=== PATIENT | male | born 1980 | race Hispanic/Latino ===

== ENCOUNTER 2019-06-21 09:39 | Emergency (ER) | payer OTHER ==
[2019-06-21 09:45] VITALS: BP 177/109
[2019-06-21] MEDS ORDERED: XYLOCAINE 1%/ EPI 1:100,000 INFILTRATI NR (10:00)
[2019-06-21] MEDS ORDERED: BOOSTRIX IM ONE (10:02)
--- NOTE | 2019-06-21 10:02 | Emergency Department Report ---
HPI - General Chief Complaint: Wound/Laceration Time Seen by Provider: 06/21/19 09:46 - HPI HPI: 39-year-old male presents to the emergency department with a right forearm laceration from a pain of glass that occurred just prior to arrival. The patient works for a [employer] company and a large pane of glass shattered and came down onto his arm. He is unsure of his last tetanus vaccination. He has a past medical history of hypertension. ED Past Medical Hx - Past Medical History Previous Medical History?: No - Social History Smoking Status: Never Smoker - Medications Home Medications: Home Medications Medication Instructions Recorded Confirmed Last Taken Type Sulfamethoxazole/Trimethoprim 1 each PO BID #10 tablet 06/21/19 Unknown Rx [Bactrim DS TAB] ED Review of Systems ROS: Stated complaint: CUT ARM Other details as noted in HPI Comment: All other systems reviewed and negative Musculoskeletal: myalgia. denies: joint swelling Skin: other (laceration). denies: rash Neurological: denies: numbness, paresthesias Physical Exam - Physical Exam Vital Signs: Vital Signs 06/21/19 09:43 Temperature 98 F Pulse Rate 104 H Respiratory 18 Rate Blood Pressure 177/109 [Left] O2 Sat by Pulse 98 Oximetry Physical Exam: GENERAL: The patient is well-developed well-nourished. HENT: Normocephalic. Atraumatic. Patient has moist mucous membranes. EYES: Extraocular motions are intact. NECK: Supple. Trachea is midline. CHEST/LUNGS: Clear to auscultation. There is no respiratory distress noted. HEART/CARDIOVASCULAR: Regular. There is no tachycardia. There is no murmur. ABDOMEN: Abdomen is soft, nontender. Patient has normal bowel sounds. There is no abdominal distention. SKIN: There is a 5 cm laceration to the dorsal right mid forearm. The laceration is irregular and appears to go down through the subcutaneous fat/tissue. No current bleeding. NEURO: The patient is awake, alert, and oriented. The patient is cooperative. The patient has no focal neurologic deficits. The patient has normal speech. MUSCULOSKELETAL: There is some tenderness to palpation to the right mid forearm with the patient has a laceration. There is no limitation range of motion. Radial pulse +2 over 4 and capillary refill less than 2 seconds to the affected right upper extremity. ED Course Vital Signs 06/21/19 09:43 Temperature 98 F Pulse Rate 104 H Respiratory 18 Rate Blood Pressure 177/109 [Left] O2 Sat by Pulse 98 Oximetry - Laceration /Wound Repair Right Arm Wound Location: upper extremity (right forearm) Wound Length (cm): 5 Wound's Depth, Shape: irregular Wound Explored: foreign body removed (4 glass fragments) Irrigated w/ Saline (ccs): 50 Anesthesia: Lidocaine w/ Epi Volume Anesthetic (ccs): 7 Wound Repaired With: sutures Suture Size/Type: 5:0, 4:0, proline Number of Sutures: 12 (one horizontal mattress, the rest simple interrupted) Layer Closure?: No Sterile Dressing Applied?: Yes ED Medical Decision Making - Radiology Data Radiology results: image reviewed interpreted by me: The first x-ray of the right forearm shows some radiopaque foreign bodies in the subcutaneous tissue concerning for retained glass The second x-ray of the right forearm shows removal of the radiopaque foreign bodies - Medical Decision Making Patient presents with a right forearm laceration after a pane of glass broke and fell onto his arm. He is neurovascularly intact and has full range of motion. His tetanus vaccination was updated. The x-ray did not show any fracture but did show some retained glass fragments. I was able to remove these after local anesthesia. The repeat x-ray appears to show removal of the glass fragments. The suture was then closed/approximated. He was once again neurovascularly intact after the procedure was completed. We discussed suture care, wound care, and he will follow-up with his Worker's Compensation physicians. He has also been given a referral for orthopedist. He will return to the ER with any worsening of symptoms, signs of infection, or with any acute distress. - Differential Diagnosis retained glass fragments, laceration, muscle tear Critical Care Time: No Critical care attestation.: If time is entered above; I have spent that time in minutes in the direct care of this critically ill patient, excluding procedure time. ED Disposition Clinical Impression: Retained glass fragment, Elevated blood pressure reading Laceration of right forearm Qualifiers: Encounter type: initial encounter Qualified Code(s): S51.811A - Laceration without foreign body of right forearm, initial encounter Disposition: - TO HOME OR SELFCARE Is pt being admited?: No Condition: Stable Instructions: Suture Care (ED), Laceration (ED) Additional Instructions: Please follow up with any of the Worker's Compensation physicians as directed by your place of work. I am also giving him a referral for a local orthopedist, Dr. Nava, to follow up regarding your right forearm pain. The sutures will need to be removed in about 7 days. However you will need to be seen sooner with any signs or symptoms of infection such as increased pain, increased swelling, surrounding redness, discharge of pus, development of fever. The sutures can be removed at a primary care, urgent care or in the emergency department. Prescriptions: Sulfamethoxazole/Trimethoprim [Bactrim DS TAB] 1 each PO BID #10 tablet Referrals: JOSE R NAVA MD [Staff Physician] - 2-3 Days Time of Disposition: 11:56
--- NOTE | 2019-06-21 11:14 | XRay Report ---
RIGHT FOREARM HISTORY: Laceration. Checking for foreign body. COMPARISON: None. TECHNIQUE: 2 views of the right forearm were obtained. FINDINGS: Bones: No fracture or dislocation. 2 surgical screws are identified in the radial head. Joint spaces: Maintained. Soft tissues: Laceration of the proximal lateral forearm with a 2 cm long cluster of 4 glass fragment s approximately 1.5 to 2 cm deep to the skin. The shape of the fragments suggest that of a shattered windshield. Additional findings: None. IMPRESSION: Glass fragments deep to a laceration of the proximal forearm. No bony injury. Signer Name: Colton Avila MD Signed: 06/21/2019 11:09 AM Workstation Name: [id number]
--- NOTE | 2019-06-21 12:38 | XRay Report ---
RIGHT FOREARM HISTORY: Recheck after removal of glass COMPARISON: Same day at 10:00 TECHNIQUE: 2 views of the right forearm were obtained. FINDINGS: Since the last exam, the previously described glass fragments have been removed from the proximal sof t tissues. A tiny approximately 2 mm curvilinear radiopaque object is identified approximately 1.5 cm deep to the skin at the distal aspect of the wound. This may be a tiny residual glass fragment or ot her foreign body but it was not identified on the previous exam. Signer Name: Colton Avila MD Signed: 06/21/2019 12:34 PM Workstation Name: [id number]
[2019-06-21 13:05] LABS: Amphetamine Screen,Urine PRESUMPTIVE NEGATIVE; Benzodiazepines Screen,Urine PRESUMPTIVE NEGATIVE; Cannabinoid Screen,Urine PRESUMPTIVE NEGATIVE; Cocaine Screen,Urine PRESUMPTIVE NEGATIVE; Methadone Screen,Urine PRESUMPTIVE NEGATIVE; Opiate Screen,Urine PRESUMPTIVE NEGATIVE
== END 2019-06-21 12:09 | disposition home or self-care (01) ==
LOC: ED 09:39
DX: S51.811A Laceration without foreign body of right forearm, initial encounter (principal); I10 Essential (primary) hypertension; Z88.5 Allergy status to narcotic agent; W25.XXXA Contact with sharp glass, initial encounter; Y93.89 Activity, other specified; Y92.69 Other specified industrial and construction area as the place of occurrence of the external cause; Y99.8 Other external cause status
CPT/HCPCS: 80307; 90471; 90715

== ENCOUNTER 2019-07-01 10:32 | Emergency (ER) | payer OTHER ==
--- NOTE | 2019-07-01 11:57 | Emergency Department Report ---
Suture/Staple Removal - HPI Chief Complaint: Laceration/Recheck/Suture Stated Complaint: STITCHES REMOVED Time Seen by Provider: 07/01/19 11:11 When Sutures or Robbins Placed: 8-10 Days Ago (right arm) ED Review of Systems ROS: Stated complaint: STITCHES REMOVED Other details as noted in HPI Comment: All other systems reviewed and negative ED Past Medical Hx - Past Medical History Previous Medical History?: Yes Hx Hypertension: Yes - Surgical History Past Surgical History?: No - Social History Smoking Status: Never Smoker - Medications Home Medications: Home Medications Medication Instructions Recorded Confirmed Last Taken Type Sulfamethoxazole/Trimethoprim 1 each PO BID #10 tablet 06/21/19 Unknown Rx [Bactrim DS TAB] Suture Removal Exam - Exam General: Vital signs noted. No distress. Alert and acting appropriately. Wound: No Pathologic Erythema, No Tenderness, No Drainage, No Pus, No Wound Dehiscence Other Systems: All other systems reviewed and are unremarkable. Wound healing well. The right arm. Sutures are in place. Some immature healing to the distal last of the wound. ED Course Vital Signs 07/01/19 10:38 Temperature 98 F Pulse Rate 78 Respiratory 16 Rate Blood Pressure 151/98 O2 Sat by Pulse 98 Oximetry ED Recheck MDM - Medical Decision Making Sutures were removed. Steri-Strips placed to the distal aspect of the wound. No complications. Procedure tolerated well Critical care attestation.: If time is entered above; I have spent that time in minutes in the direct care of this critically ill patient, excluding procedure time. ED Disposition Clinical Impression: Visit for suture removal Disposition: DC-01 TO HOME OR SELFCARE Is pt being admited?: No Does the pt Need Aspirin: No Condition: Stable Instructions: Suture Removal (ED) Referrals: SEN MATHIS MD [Primary Care Provider] - 3-5 Days
[2019-07-01 12:07] VITALS: BP 131/88
== END 2019-07-01 12:10 | disposition home or self-care (01) ==
LOC: ED 10:32
DX: S41.111D Laceration without foreign body of right upper arm, subsequent encounter (principal); I10 Essential (primary) hypertension; Z79.899 Other long term (current) drug therapy; Z88.5 Allergy status to narcotic agent; X58.XXXD Exposure to other specified factors, subsequent encounter
CPT/HCPCS: 99282